=== PATIENT | female | born 1955 | race African-American/Black ===

== ENCOUNTER 2017-01-24 23:17 | Emergency (ER) | payer OTHER ==
[~2017-01-24] VITALS: Ht 165.1 cm; Wt 60.0 kg
[~2017-01-24 23:17] MED LIST: NIFE30TA98 PO
[2017-01-24] MEDS ORDERED: LISI-661 PO (23:21)
[2017-01-24] MEDS ORDERED: METO25 PO (23:21)
[2017-01-24] MEDS ORDERED: ASPI-556 PO (23:21)
[2017-01-24] MEDS ORDERED: CARV6 PO (23:21)
[2017-01-25 00:01] LABS: BASOPHILS % (AUTO) 0.5 % (0.0-2.0); EOSINOPHILS % (AUTO) 1.9 % (1.0-6.0); HEMATOCRIT 38.9 % (36-46); HEMOGLOBIN 13.2 g/dL (12.0-16.0); LYMPHOCYTES # (AUTO) 0.8 K/uL (1.0-4.8); LYMPHOCYTES % (AUTO) 14.5 % (22.0-44.0); MEAN CORPUSCULAR HEMOGLOBIN 32.4 pg (26.0-34.0); MEAN CORPUSCULAR HGB CONC 33.8 G/dL (31.0-37.0); MEAN CORPUSCULAR VOLUME 96 fL (80-100); MONOCYTES # (AUTO) 0.6 K/uL (0.1-1.0); MONOCYTES % (AUTO) 10.8 % (2.0-9.0); NEUTROPHILS # (AUTO) 3.7 K/uL (1.8-7.7); NEUTROPHILS % (AUTO) 72.3 % (40.0-70.0); PLATELET COUNT (AUTO) 149 K/uL (150-450); RED BLOOD CELL COUNT(AUTO) 4.06 MIL/uL (4.00-5.20); RED CELL DISTRIBUTION WIDTH 14.4 % (11.5-14.5); WHITE BLOOD COUNT (AUTO) 5.2 K/uL (4.5-11.0)
[2017-01-25 00:15] LABS: PROTHROMBIN TIME 10.7 SEC (9.4-11.6)
[2017-01-25 00:24] LABS: ALANINE AMINOTRANSFERASE 54 U/L (12-78); ANION GAP 9 mmol/L (8-16); ASPARTATE AMINOTRANSFERASE 103 U/L (15-37); CARBON DIOXIDE 26 mmol/L (22-29); CHLORIDE 88 mmol/L (98-107); CREATININE 1.11 mg/dL (0.60-1.30); GLOMERULAR FILTR. RATE CALC 60 mL/min (>60); POTASSIUM 3.9 mmol/L (3.5-5.1); UREA NITROGEN, BLOOD 8 mg/dL (7-18)
[2017-01-25 00:25] LABS: CREATINE KINASE, TOTAL 141 U/L (26-192); TOTAL PROTEIN, SERUM 7.9 g/dL (6.4-8.2)
[2017-01-25 00:30] LABS: SODIUM SERUM 123 mmol/L (136-145)
[2017-01-25 00:34] LABS: CREATINE KINASE MB 0.9 ng/mL (0-5)
[2017-01-25 00:40] VITALS: BP 175/104
== END 2017-01-25 01:04 | disposition left against medical advice (07) ==
LOC: EMS 23:19
DX: I20.9 Angina pectoris, unspecified (principal); E87.1 Hypo-osmolality and hyponatremia; I25.10 Atherosclerotic heart disease of native coronary artery without angina pectoris; I10 Essential (primary) hypertension; Z88.2 Allergy status to sulfonamides
CPT/HCPCS: 93005; 99285

== ENCOUNTER 2020-10-28 13:31 | Emergency (ER) | payer MEDICARE, OTHER ==
[~2020-10-28] VITALS: Ht 167.6 cm; Wt 56.8 kg
[~2020-10-28 13:31] MED LIST changes: +AMLO5TAB66 PO; +ASPI-556 PO; +ISOS30TA92 PO; +LISI-893 PO; -NIFE30TA98 PO; +RANO500T3 PO
[2020-10-28 13:35] VITALS: BP 146/92
[2020-10-28] MEDS ORDERED: OXYMETAZOLINE HCL 0.05% 15 ML NASAL SPRAY NASAL ONE (14:30)
== END 2020-10-28 14:41 | disposition home or self-care (01) ==
LOC: EMS 13:47
DX: R04.0 Epistaxis (principal); I10 Essential (primary) hypertension; I25.10 Atherosclerotic heart disease of native coronary artery without angina pectoris; Z88.1 Allergy status to other antibiotic agents; Z79.899 Other long term (current) drug therapy; Z79.82 Long term (current) use of aspirin
CPT/HCPCS: 99282; Z7502; Z7610

== ENCOUNTER 2020-12-09 11:44 | Emergency (ER) | payer SELFPAY ==
[~2020-12-09] VITALS: Ht 165.1 cm; Wt 70.5 kg
[2020-12-09] MEDS ORDERED: ACETAMINOPHEN 325 MG TABLET PO ONE (12:15)
[2020-12-09 14:23] VITALS: BP 149/94
== END 2020-12-09 14:36 | disposition home or self-care (01) ==
LOC: EMS 11:58
DX: S80.01XA Contusion of right knee, initial encounter (principal); S60.211A Contusion of right wrist, initial encounter; S50.11XA Contusion of right forearm, initial encounter; S90.01XA Contusion of right ankle, initial encounter; I10 Essential (primary) hypertension; Z88.1 Allergy status to other antibiotic agents; Z79.82 Long term (current) use of aspirin; Z79.899 Other long term (current) drug therapy; W19.XXXA Unspecified fall, initial encounter; Y93.89 Activity, other specified; Y92.89 Other specified places as the place of occurrence of the external cause; Y99.8 Other external cause status
CPT/HCPCS: 29105; 99284; 73090-TC; 73110-TC; 73562-TC; 73610-TC; Z7502; Z7610